=== PATIENT | male | born 1955 | race Caucasian/White ===

== ENCOUNTER 2018-08-30 14:22 | Inpatient (IN) ==
[2018-08-30] MEDS ORDERED: Mirtazapine 15 MG Tablet PO ONE (20:28)
[2018-08-30] MEDS ORDERED: clonazePAM 1 MG Tablet PO ONE (20:28)
--- NOTE | 2018-08-30 20:37 | ED ---
HPI General Chief Complaint: Psychiatric Symptoms Stated Complaint: psych eval Time Seen by Provider: 08/31/18 12:01 Source: patient Mode of arrival: ambulatory Limitations: no limitations History of Present Illness HPI Narrative: 63-year-old white male presents emergency department on a voluntary basis for psychological evaluation. The patient was advised by his grievance counselor to come to the ER because of a failed overdose attempt this past Sunday. He had taken approximately 20 tablets of oxycodone in a suicide attempt. Patient states that Derick his partner of 37 years earlier this year. He states that he has suffered a recent pneumonia with liver abscess followed by C. difficile. His life is consumed with doctor's appointments. He states that he had lost the will to live. He states that he does not feel suicidal now but states that he does not want to continue to live any longer. He denies any homicidal ideation. He does report having a large voluminous diarrhea after ingesting the oxycodone. He has gradually had some improvement of his diarrhea but is still significant. Patient reports having fever and chills this past Sunday before his ingestion. He states that it was reminiscent of when he had sepsis from subtalar pneumonia. He denies any cough , congestion, shortness of breath, nausea, vomiting, or urinary symptoms. He does report some abdominal cramping and his persistent diarrhea. 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 Depression, anxiety, BPH. Denies immunosuppression or HIV. Surgical history: Left upper lobe lobectomy, appendectomy Social history: Drinks alcohol on occasion denies tobacco and drugs. Related Data Home Medications Medication Instructions Recorded Confirmed clonazepam 0.5 mg PO BID 08/30/18 08/30/18 clonazepam 2 mg PO HS 08/30/18 08/30/18 mirtazapine 15 mg PO DAILY 08/30/18 08/30/18 paroxetine HCl 20 mg PO HS 08/30/18 08/30/18 tamsulosin 0.4 mg PO DAILY 08/30/18 08/30/18 Allergies Allergy/AdvReac Type Severity Reaction Status Date / Time cat dander Allergy Congestion Verified 08/30/18 20:27 Review of Systems ROS: all other systems reviewed are negative [facility] Medical History Medical History BPH (benign prostatic hyperplasia) (Acute) Depression (Acute) Surgical History Surgical History History of appendectomy (Acute) S/P partial lobectomy of lung (Acute) Family History Family History Other Family history normal Social History Social History Substance History: No History of Abuse Second Hand Smoke Exposure: No Smoking Status: Never smoker How Often Do You Have a Drink Containing Alcohol: Monthly or less Recent Travel in [facility] within the Last 8 Weeks: No Recent Out of Country Travel within the Last 8 Weeks: No Immunization History Tetanus Immunization: Unsure Exam Narrative Exam Narrative: GENERAL: Well-nourished, well-developed patient. SKIN: Warm and dry. HEAD: Normocephalic and atraumatic. EYES: No scleral icterus. No injection or drainage. ENT: No nasal drainage noted. Mucous membranes pink. Airway patent. NECK: Supple, trachea midline. Moves head freely without obvious discomfort. CARDIOVASCULAR: Regular rate and rhythm without murmurs, gallops, or rubs. RESPIRATORY: Breath sounds equal bilaterally. No accessory muscle use. GASTROINTESTINAL: Abdomen soft, non-tender, nondistended. EXTREMITIES: No cyanosis or edema. BACK: Nontender without obvious deformity. No CVA tenderness. NEURO: Patient is alert and oriented. no sensorimotor deficits. Nonfocal. Normal speech. PSYCH: No delusions. No auditory or visual hallucinations. Course Initial Documented Vital Signs Temperature 99.0 F 08/30/18 14:42 Pulse Rate 105 H 08/30/18 14:42 Respiratory Rate 18 08/30/18 14:42 Blood Pressure 140/71 08/30/18 14:42 Pulse Oximetry 98 08/30/18 14:42 Last Documented Vital Signs Temperature 97.5 F L 08/31/18 16:04 Pulse Rate 80 08/31/18 16:04 Respiratory Rate 18 08/31/18 16:04 Blood Pressure 129/69 08/31/18 16:04 Pulse Oximetry 97 08/31/18 16:04 Medical Decision Making MDM Narrative Medical decision making narrative: We will perform routine laboratory testing for medical clearance. We will also obtain chest x-ray and stool for C. difficile. Patient C. difficile titer is positive. He is given vancomycin 250 mg p.o. Medical Screen Exam Complete: Yes Emergency Medical Condition: Yes Differential Diagnosis Differential Diagnosis: Differential diagnosis includes but is not limited to depression with suicidal gesture, suicide attempt, suicidal ideation, attention seeking behavior. Lab Data Lab results reviewed: Yes I reviewed the patient's lab results. Result diagrams: 08/30/18 21:04 08/30/18 21:04 Lab Results 08/30/18 08/30/18 08/30/18 Range/Units 20:45 21:04 21:04 WBC 7.3 (4.0-11.0) th/mm3 RBC 4.79 (4.50-5.90) mil/mm3 Hgb 14.2 (13.0-17.0) gm/dL Hct 42.1 (39.0-51.0) % MCV 87.8 (80.0-100.0) fL MCH 29.7 (27.0-34.0) pg MCHC 33.8 (32.0-36.0) % RDW 14.5 (11.6-17.2) % Plt Count 306 (150-450) th/mm3 MPV 6.7 L (7.0-11.0) fL Neut % (Auto) 62.2 (16.0-70.0) % Lymph % (Auto) 24.9 (9.0-44.0) % Beaver % (Auto) 11.2 H (0.0-8.0) % Eos % (Auto) 1.2 (0.0-4.0) % Baso % (Auto) 0.5 (0.0-2.0) % Neut # (Auto) 4.5 (1.8-7.7) th/mm3 Lymph # (Auto) 1.8 (1.0-4.8) th/mm3 Beaver # (Auto) 0.8 (0.0-0.9) th/mm3 Eos # (Auto) 0.1 (0.0-0.4) th/mm3 Baso # (Auto) 0.0 (0.0-0.2) th/mm3 WBC Differential . Differential Comment Auto diff final Sodium 142 (136-145) meq/L Potassium 3.8 (3.5-5.1) meq/L Chloride 105 (98-107) meq/L Carbon Dioxide 29.1 (21.0-32.0) meq/L Anion Gap 8 (5-15) meq/L BUN 11 (7-18) mg/dL Creatinine 0.95 (0.60-1.30) mg/dL Estimated GFR 80 L (>89) mL/min Random Glucose 100 (74-106) mg/dL Calcium 8.8 (8.5-10.1) mg/dL Total Bilirubin 0.3 (0.2-1.0) mg/dL AST 192 H (15-37) U/L ALT 88 H (12-78) U/L Alkaline Phosphatase 79 (45-117) U/L Total Protein 8.3 H (6.4-8.2) g/dL Albumin 3.6 (3.4-5.0) g/dL TSH 1.430 (0.358-3.740) uIU/mL Stool C.difficile Ag Positive H (Negative) Stool C.difficile Toxin Negative (Negative) Stl C.difficile DNA Amp Positive H (Negative) St C. diff Tox Epid 027 Negative (Negative) Serum Alcohol Less than 3 (0-5) mg/dL Imaging Data Radiologist's impression: Chest X-Ray 08/30/18 20:28 CONCLUSION: No evidence of acute cardiopulmonary disease. Apparent previous left thoracotomy. Discharge Plan Discharge Disposition Patient Disposition: 30 Still Patient Discharge Details Diagnosis: Depression, C. difficile diarrhea Physicians Team ED Provider: Tamara Marsh ED Midlevel Provider: Seth Kemp Primary Care Provider: Kevin Dallas Attending Provider: Amarjit Muir Other Providers: Kailyn Starr ; Aminata Cardenas Discharge Interventions Interventions: ED Discharge Assessment Last Done: 08/31/18 15:59 Vital Signs Last Done: 08/31/18 07:07 Status ED Status: Left Department Discharge Information Discharge Date/Time: 08/31/18 16:00
[2018-08-30 21:16] LABS: Baso % (Auto) 0.5 % (0.0-2.0); Eos # (Auto) 0.1 th/mm3 (0.0-0.4); Eos % (Auto) 1.2 % (0.0-4.0); Hematocrit 42.1 % (39.0-51.0); Hemoglobin 14.2 gm/dL (13.0-17.0); Lymph # (Auto) 1.8 th/mm3 (1.0-4.8); Lymph % (Auto) 24.9 % (9.0-44.0); Mean Corpuscular HGB Conc 33.8 % (32.0-36.0); Mean Corpuscular Hemoglobin 29.7 pg (27.0-34.0); Mean Corpuscular Volume 87.8 fL (80.0-100.0); Mean Platelet Volume 6.7 fL (7.0-11.0); Mono # (Auto) 0.8 th/mm3 (0.0-0.9); Mono % (Auto) 11.2 % (0.0-8.0); Neut # (Auto) 4.5 th/mm3 (1.8-7.7); Neut % (Auto) 62.2 % (16.0-70.0); Platelet Count 306 th/mm3 (150-450); Red Blood Count 4.79 mil/mm3 (4.50-5.90); Red Cell Distribution Width 14.5 % (11.6-17.2); White Blood Count 7.3 th/mm3 (4.0-11.0)
--- NOTE | 2018-08-30 21:22 | XR ---
EXAM DATE: 08/30/2018 8:28 PM EDT AGE/SEX: 63 years / Male INDICATIONS: . Cough. CLINICAL DATA: This is the patient's initial encounter. Patient reports that signs and symptoms have been present for 1 day and indicates a pain score of 0/10. MEDICAL/SURGICAL HISTORY: None. None. COMPARISON: No prior exams available for comparison. FINDINGS: PA and lateral views of the chest demonstrate the lungs to be symmetrically aerated without evidence of mass, infiltrate or effusion. The cardiomediastinal contours are unremarkable. Osseous structures are grossly, acutely intact. There is evidence of previous left thoracotomy. CONCLUSION: No evidence of acute cardiopulmonary disease. Apparent previous left thoracotomy. Electronically signed by: Hesham Cadena MD 08/30/2018 9:20 PM EDT
[2018-08-30 21:36] LABS: Albumin 3.6 g/dL (3.4-5.0); Anion Gap 8 meq/L (5-15); Aspartate Aminotransferase 192 U/L (15-37); Blood Urea Nitrogen 11 mg/dL (7-18); Calcium 8.8 mg/dL (8.5-10.1); Carbon Dioxide 29.1 meq/L (21.0-32.0); Chloride 105 meq/L (98-107); Glomerular Filtration Rate 80 mL/min (>89); Glucose,Random 100 mg/dL (74-106); Potassium 3.8 meq/L (3.5-5.1); Sodium 142 meq/L (136-145)
[2018-08-30 21:37] LABS: Alanine Aminotransferase 88 U/L (12-78)
[2018-08-30 21:48] LABS: Alkaline Phosphatase 79 U/L (45-117); Total Protein 8.3 g/dL (6.4-8.2)
[2018-08-31] MEDS ORDERED: Sodium Chloride 0.9% 2 ML Flush PRN IV.FLUSH (00:20)
[2018-08-31] MEDS ORDERED: clonazePAM 1 MG Tablet PO ONE (07:09)
--- NOTE | 2018-08-31 12:46 | ED ---
HPI - Psych - General Source: patient Mode of arrival: ambulatory Limitations: no limitations - History of Present Illness MD complaint: suicidal ideation Onset (ago): day(s) Duration: resolved prior to arrival History of same: Yes Relieving factors: none Exacerbating factors: none Context: significant life stressor Associated psychiatric symptoms: depression Associated symptoms: other (Diarrhea) Treatments prior to arrival: none If self harm: has acted on plan, intentional overdose (2 days ago), other - General Chief Complaint: Psychiatric Symptoms Stated Complaint: psych eval Time Seen by Provider: 08/31/18 12:01 - History of Present Illness HPI Narrative: History of Present Illness HPI Narrative: 63-year-old white, , retired, male, lives by himself, with reported history of anxiety and depression, presents emergency department on a voluntary basis for psychological evaluation as advised by his grief counselor secondary to failed overdose attempt this past Sunday. The patient allegedly took approximately 20 tablets of oxycodone as a suicide attempt. He did not seek treatment at that time. Patient reports several significant stressors including his partner of 37 years in November of this year , the patient has had several medical issues including pneumonia, left upper lobe lobectomy secondary to lung infection, liver abscess, C. difficile. He feels that his life is consumed with doctor's appointments and that he had lost the will to live. He has been seen a local psychiatrist Dr. Wolfe for the past 3 months and is being treated with Paxil 20 mg, Remeron 15 mg, Klonopin 0.5 twice daily and 2 mg at at bedtime for sleep. Electronic medical record is reviewed prior to seeing the patient. No previous contact with [facility]. Current toxicology is not available at the time of this report. Blood alcohol level is undetectable. Patient is seen. He is alert, oriented, engaging and cooperative. He is maintaining basic hygiene. The patient's speech is clear, logical. His affect depressed, mood is depressed. There is no evidence of any hallucinations and I can elicit no delusions or paranoia. He denies current suicidal ideation at this time. He appears to minimize his current emotional distress. 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 The remainder of psychiatric review of system is negative. (Michelle Heller) - Related Data Home Medications Medication Instructions Recorded Confirmed clonazepam 0.5 mg PO BID 08/30/18 08/30/18 clonazepam 2 mg PO HS 08/30/18 08/30/18 mirtazapine 15 mg PO DAILY 08/30/18 08/30/18 paroxetine HCl 20 mg PO HS 08/30/18 08/30/18 tamsulosin 0.4 mg PO DAILY 08/30/18 08/30/18 Allergies Allergy/AdvReac Type Severity Reaction Status Date / Time cat dander Allergy Congestion Verified 08/30/18 20:27 PMF - History History Provided By: Patient - Medical History Medical History: Medical History (Last Updated 08/31/18 @ 14:20 by Kailyn Starr MD) BPH (benign prostatic hyperplasia) Depression - Surgical History Surgical History: Surgical History (Last Reviewed 08/31/18 @ 14:17 by Kailyn Starr MD) History of appendectomy S/P partial lobectomy of lung - Family History Family History: Family History (Last Updated 08/31/18 @ 14:17 by Kailyn Starr MD) Other Family history normal - Tobacco History Second Hand Smoke Exposure: No Tobacco Use In Past 30 Days: No Smoking Status: Never smoker - Alcohol History How Often Do You Have a Drink Containing Alcohol: Monthly or less - Substance Use History Substance History: No History of Abuse - Travel History Recent Travel in the [place] Within the Last 8 Weeks: No Recent Travel Out of the Country Within the Last 8 Weeks: No - Immunization History Tetanus Immunization: Unsure Psychiatric History - Psychiatric History Psychiatric Treatment History: History of Psychiatric Treatment History of Inpatient Treatment: No Firearms in Home: No - Psychiatric History Denies history of previous suicide attempt. Denies history of any psychiatric admission. Patient has been receiving outpatient psychiatric care for the past 3 months. Reports medication compliance. (Heller,Michelle) - Legal History None reported (Heller,Michelle) Physical Exam - General Limitations: no limitations Mental Status Examination Consciousness: Alert Orientation: x4 Motor Activity: Normal gait Speech: Unremarkable Language: Adequate Fund of Knowledge: Adequate Attention and Concentration: Other (Reports decreased concentration) Memory: Unremarkable Mood: Sad, Anxious Affect: Sad Thought Process & Associations: Intact, Logical, Goal directed Thought Content: Appropriate Hallucination Type: None Delusion Type: None Suicidal Ideation: No Suicidal Plan: No Suicidal Intention: No Homicidal Ideation: No Homicidal Plan: No Homicidal Intention: No Insight: Fair Judgment: Impulsive Initial Documented Vital Signs Temperature 99.0 F 08/30/18 14:42 Pulse Rate 105 H 08/30/18 14:42 Respiratory Rate 18 08/30/18 14:42 Blood Pressure 140/71 08/30/18 14:42 Pulse Oximetry 98 08/30/18 14:42 Last Documented Vital Signs Temperature 97.5 F L 08/31/18 16:04 Pulse Rate 80 08/31/18 16:04 Respiratory Rate 18 08/31/18 16:04 Blood Pressure 129/69 08/31/18 16:04 Pulse Oximetry 97 08/31/18 16:04 MDM - Psych - Diagnosis (1) Adjustment disorder with mixed anxiety and depressed mood Status: Acute - Lab Data Result diagrams: 08/30/18 21:04 08/30/18 21:04 - [facility] Narrative Medical decision making narrative: 63-year-old male with psychiatric history as detailed above with recent suicide attempt by overdose in which she did not receive any treatment. The patient is referred to [place] for evaluation by his grief counselor. Although the patient denies current suicidal ideation he presents significant life stressors and major losses including loss of lifetime partner, multiple medical conditions which impact his ability to do the things he wants to do. Although he denies current suicidal ideation I am concerned regarding his recent failed attempt and the possibility that he may be minimizing current level of despair and distress. I have recommended to the patient a voluntary admission to our inpatient psychiatric unit for further evaluation, for stabilization, medication adjustment and for safety. He agrees to voluntary admission. I will place a consult for hospitalist to follow up on his multiple medical issues and including treatment for C. difficile. (Michelel Heller) - Lab Data Lab Results 08/30/18 08/30/18 08/30/18 Range/Units 20:45 21:04 21:04 WBC 7.3 (4.0-11.0) th/mm3 RBC 4.79 (4.50-5.90) mil/mm3 Hgb 14.2 (13.0-17.0) gm/dL Hct 42.1 (39.0-51.0) % MCV 87.8 (80.0-100.0) fL MCH 29.7 (27.0-34.0) pg MCHC 33.8 (32.0-36.0) % RDW 14.5 (11.6-17.2) % Plt Count 306 (150-450) th/mm3 MPV 6.7 L (7.0-11.0) fL Neut % (Auto) 62.2 (16.0-70.0) % Lymph % (Auto) 24.9 (9.0-44.0) % Oliver % (Auto) 11.2 H (0.0-8.0) % Eos % (Auto) 1.2 (0.0-4.0) % Baso % (Auto) 0.5 (0.0-2.0) % Neut # (Auto) 4.5 (1.8-7.7) th/mm3 Lymph # (Auto) 1.8 (1.0-4.8) th/mm3 Oliver # (Auto) 0.8 (0.0-0.9) th/mm3 Eos # (Auto) 0.1 (0.0-0.4) th/mm3 Baso # (Auto) 0.0 (0.0-0.2) th/mm3 WBC Differential . Differential Comment Auto diff final Sodium 142 (136-145) meq/L Potassium 3.8 (3.5-5.1) meq/L Chloride 105 (98-107) meq/L Carbon Dioxide 29.1 (21.0-32.0) meq/L Anion Gap 8 (5-15) meq/L BUN 11 (7-18) mg/dL Creatinine 0.95 (0.60-1.30) mg/dL Estimated GFR 80 L (>89) mL/min Random Glucose 100 (74-106) mg/dL Calcium 8.8 (8.5-10.1) mg/dL Total Bilirubin 0.3 (0.2-1.0) mg/dL AST 192 H (15-37) U/L ALT 88 H (12-78) U/L Alkaline Phosphatase 79 (45-117) U/L Total Protein 8.3 H (6.4-8.2) g/dL Albumin 3.6 (3.4-5.0) g/dL TSH 1.430 (0.358-3.740) uIU/mL Stool C.difficile Ag Positive H (Negative) Stool C.difficile Toxin Negative (Negative) Stl C.difficile DNA Amp Positive H (Negative) St C. diff Tox Epid 027 Negative (Negative) Serum Alcohol Less than 3 (0-5) mg/dL
--- NOTE | 2018-08-31 13:37 | P.HPIM ---
History of Present Illness Service: [facility] Primary Care Physician: Kevin Dallas MD, PhD Chief Complaint: depressed mood, suicide attempt History of Present Illness: This is a 63-year-old CM who was admitted per the Psych team for psychological evaluation on voluntary basis. The patient was advised by his grievance counselor to come to the ER because of a failed overdose attempt this past Sunday after patient had taken approximately 20 tablets of OxyContin in a suicide attempt due to him losing his will to live. Patient reports that his partner of 37yrs, Derick, a few months ago. Patient currently denies suicidal/homicidal ideation. Patient is on Paxil and Remeron at home for Depression. Patient does have a Hx of PNA with pleural effusion on 06/2017 managed in [place] but he later transferred to [facility] in [place] where a lobectomy was performed and patient states that he was told that it was noncancerous. Patient then developed Klebsiella PNA and sepsis on 02/2018 and managed at [facility]. Patient reports that he was on ABX for 14 days and that ID can prolonging his ABX due to CT findings concerning for the PNA still being present , he reports being on ABX x14 wks total. Patient then transferred to ID, Dr. Gastelum, due to loose stools C. Diff testing was done and founf to be positive on 05/2018 and patient completed Vanc x14 days. Patient reports that he now has diarrhea again with chills x2 days, +foul smell , flatulence, and abdominal cramps. Patient denies fever, chest pain, shortness of breath, and vomiting. Patient is requesting ID consult. Inpatient Certification: I certify that the inpatient services were ordered in accordance with Medicare regulations governing the order. This includes certification that hospital inpatient services are reasonable and necessary and in the case of services not specified as inpatient-only under 42 CFR 419.22(n), that they are appropriately provided as inpatient services in accordance to with the 2-midnight benchmark under 43 CFR 412.3(e) Estimated Total Length of Stay (Days): 5 Plans for Post Hospital Care: Home Review of Systems All other systems reviewed negative except as stated in HPI PMFSH - History History Provided By: Patient - Medical History Medical History: Medical History (Last Updated 08/31/18 @ 14:20 by Kailyn Starr MD) BPH (benign prostatic hyperplasia) Depression - Surgical History Surgical History: Surgical History (Last Reviewed 08/31/18 @ 14:17 by Kailyn Starr MD) History of appendectomy S/P partial lobectomy of lung - Family History Family History: Family History (Last Updated 08/31/18 @ 14:17 by Kailyn Starr MD) Other Family history normal - Social History I have reviewed the patient's Social History: Yes - Tobacco History Second Hand Smoke Exposure: No Tobacco Use In Past 30 Days: No Smoking Status: Never smoker - Alcohol History How Often Do You Have a Drink Containing Alcohol: Monthly or less - Substance Use History Substance History: No History of Abuse - Travel History Recent Travel in the [place] Within the Last 8 Weeks: No Recent Travel Out of the Country Within the Last 8 Weeks: No - Immunization History Tetanus Immunization: Unsure Medications and Allergies Active Medications: Active Medications Clonazepam (Klonopin) 0.5 mg PO BID ISSAC Mirtazapine (Remeron) 15 mg PO DAILY ISSAC Non-Formulary Medication (Clonazepam [Clonazepam]) 2 mg PO HS ISSAC Paroxetine HCl (Paxil) 20 mg PO HS ISSAC Sodium Chloride (Ns Flush) 2 ml IV.FLUSH BID ISSAC Sodium Chloride (Ns Flush) 2 ml IV.FLUSH PRN PRN PRN Reason: FLUSH AFTER USING IV ACCESS Tamsulosin HCl (Flomax) 0.4 mg PO DAILY ISSAC Vancomycin HCl (Vancomycin Po) 125 mg PO QID ISSAC Allergies Allergy/AdvReac Type Severity Reaction Status Date / Time cat dander Allergy Congestion Verified 08/30/18 20:27 Home Medications Medication Instructions Recorded Confirmed Type clonazepam 0.5 mg PO BID 08/30/18 08/30/18 History clonazepam 2 mg PO HS 08/30/18 08/30/18 History mirtazapine 15 mg PO DAILY 08/30/18 08/30/18 History paroxetine HCl 20 mg PO HS 08/30/18 08/30/18 History tamsulosin 0.4 mg PO DAILY 08/30/18 08/30/18 History Exam Vital signs: Vital Signs 08/30/18 14:42 08/30/18 19:57 08/31/18 07:07 Temperature 99.0 F 98.7 F 98.8 F Pulse Rate 105 H 100 H 78 Respiratory Rate 18 16 Blood Pressure 140/71 122/59 L 125/62 Pulse Oximetry 98 Intake & Output 08/30/18 08/31/18 08/31/18 18:59 06:59 18:59 Weight 92.533 kg Narrative: GENERAL: Well-nourished male, in NAD, lying comfortably in bed SKIN: Warm and dry. Posterior thorax with a well tear lobectomy scar on the left. HEAD: Normocephalic. EYES: No scleral icterus. No injection or drainage. NECK: Supple, trachea midline. No JVD or lymphadenopathy. CARDIOVASCULAR: Regular rate and rhythm without murmurs, gallops, or rubs. RESPIRATORY: Breath sounds equal bilaterally. No accessory muscle use. GASTROINTESTINAL: Abdomen soft, non-tender, nondistended. Neg rebound. MUSCULOSKELETAL: No cyanosis, or edema. BACK: Nontender without obvious deformity. No CVA tenderness. NEURO/PSYCH: AAOx3, blunt affect, pleasant Results - Labs CBC & Chem 7: 08/30/18 21:04 08/30/18 21:04 Labs: Short CBC 08/30/18 Range/Units 21:04 WBC 7.3 (4.0-11.0) th/mm3 Hgb 14.2 (13.0-17.0) gm/dL Hct 42.1 (39.0-51.0) % Plt Count 306 (150-450) th/mm3 BMP 08/30/18 21:04 Sodium 142 Potassium 3.8 Chloride 105 Carbon Dioxide 29.1 BUN 11 Creatinine 0.95 Calcium 8.8 Liver Function 08/30/18 Range/Units 21:04 Total Bilirubin 0.3 (0.2-1.0) mg/dL AST 192 H (15-37) U/L ALT 88 H (12-78) U/L Alkaline Phosphatase 79 (45-117) U/L Albumin 3.6 (3.4-5.0) g/dL - Imaging Impressions Chest X-Ray 08/30/18 20:28 CONCLUSION: No evidence of acute cardiopulmonary disease. Apparent previous left thoracotomy. Caprini VTE Risk Assessment Caprini VTE Risk Assessment: No/Low Risk (score <= 1) Caprini Risk Assessment Model: Point Value = 1 Point Value = 2 Point Value = 3 Point Value = 5 Age 41-60 Minor surgery BMI > 25 kg/m2 Swollen legs Varicose veins or History of unexplained or recurrent spontaneous Oral contraceptives or hormone replacement Sepsis (< 1 month) Serious lung disease, including pneumonia (< 1 month) Abnormal pulmonary function Acute myocardial infarction Congestive heart failure (< 1 month) History of inflammatory bowel disease Medical patient at bed rest Age 61-74 Arthroscopic surgery Major open surgery (> 45 min) Laparoscopic surgery (> 45 min) Malignancy Confined to bed (> 72 hours) Immobilizing plaster cast Central venous access Age >= 75 History of VTE Family history of VTE Factor V Leiden Prothrombin [id number] Lupus anticoagulant Anticardiolipin antibodies Elevated serum homocysteine Heparin-induced thrombocytopenia Other congenital or acquired thrombophilia Stroke (< 1 month) Elective arthroplasty Hip, pelvis, or leg fracture Acute spinal cord injury (< 1 month) Prophylaxis Regimen: Total Risk Factor Score Risk Level Prophylaxis Regimen 0-1 Low Early ambulation 2 Moderate Order ONE of the following: *Sequential Compression Device (SCD) *Heparin 5000 units SQ BID 3-4 Higher Order ONE of the following medications: *Heparin 5000 units SQ TID *Enoxaparin/Lovenox 40 mg SQ daily (WT < 150 kg, CrCl > 30 mL/min) *Enoxaparin/Lovenox 30 mg SQ daily (WT < 150 kg, CrCl > 10-29 mL/min) *Enoxaparin/Lovenox 30 mg SQ BID (WT < 150 kg, CrCl > 30 mL/min) AND/OR *Sequential Compression Device (SCD) 5 or more Highest Order ONE of the following medications: *Heparin 5000 units SQ TID (Preferred with Epidurals) *Enoxaparin/Lovenox 40 mg SQ daily (WT < 150 kg, CrCl > 30 mL/min) *Enoxaparin/Lovenox 30 mg SQ daily (WT < 150 kg, CrCl > 10-29 mL/min) *Enoxaparin/Lovenox 30 mg SQ BID (WT < 150 kg, CrCl > 30 mL/min) AND *Sequential Compression Device (SCD) Assessment and Plan - Plan This is a 63-year-old CM who was admitted by the Psych team for IP management of Depression with failed suicide attempt and Drug Overdose (OxyContin). Patient is medically stable however found to have diarrhea and chills x3 days and + C. difficile per testing, HD#2 1. Depression/Suicide Attempt Patient denies current suicidal and homicidal ideation Continue psych management Continue Paxil, Remeron, and Klonopin 2 C. Difficile Diarrhea Positive antigen and DNA on 08/30 Started on Vancomycin PO QID Of note treated for C. difficile as an outpatient on 05/2018 status post Vanc times 2 weeks Per patient request ID consultation due to Hx of C. Dif Will monitor electrolytes 3. Elevated LFT's Will check acetaminophen level although patient did state that he took OxyContin and not oxycodone We will get hepatitis panel Follow-up CMP in a.m. Avoid hepatotoxic meds 4. BPH Continue home Flomax 5. Hx of Lobectomy and Klebsiella PNA Neg CXR on admission No PNA sx on admission 6. DVT prophylaxis: Ambulatory 7. Disposition: Awaiting ID recommendations as well as psych management Code Status: full Discussed Condition With: patient
[2018-08-31] MEDS: Sodium Chloride 0.9% 2 ML Flush BID IV.FLUSH SCH ×2 (17:06→21:59)
[2018-08-31] MEDS ORDERED: clonazePAM 0.5 MG Tablet PO SCH (21:00)
[2018-08-31] MEDS ORDERED: clonazePAM 1 MG Tablet PO SCH (21:30)
[2018-08-31] MEDS: Mirtazapine 15 MG Tablet PO SCH (21:59)
--- NOTE | 2018-09-01 07:20 | P.PN ---
Subjective Interval history: Patient doing well overnight, reports continued diarrhea x3 overnight. Patient denies emesis, fever, and chills. Also having mild abdominal cramps. Patient is tolerating p.o., and voiding well. Patient does report improved mood today. Physical Exam Vital signs: Vital Signs 08/31/18 13:00 08/31/18 16:04 09/01/18 05:57 Temperature 97.5 F L 98.0 F Pulse Rate 78 80 79 Respiratory Rate 16 16 Blood Pressure 122/68 129/69 116/60 Pulse Oximetry 97 94 L Intake & Output 08/31/18 09/01/18 09/01/18 18:59 06:59 18:59 Intake Total 360 / 360 Balance 360 / 360 Weight 90.2 kg Intake: Oral 360 / 360 Other: # Voids 2 Weight On Admission 92.533 kg Narrative: GENERAL: Well-nourished male, in NAD, lying comfortably in bed SKIN: Warm and dry. Posterior thorax with a well tear lobectomy scar on the left. HEAD: Normocephalic. EYES: No scleral icterus. No injection or drainage. NECK: Supple, trachea midline. No JVD or lymphadenopathy. CARDIOVASCULAR: Regular rate and rhythm without murmurs, gallops, or rubs. RESPIRATORY: Breath sounds equal bilaterally. No accessory muscle use. GASTROINTESTINAL: Abdomen soft, non-tender, nondistended. Neg rebound. MUSCULOSKELETAL: No cyanosis, or edema. BACK: Nontender without obvious deformity. No CVA tenderness. NEURO/PSYCH: AAOx3, blunt affect, pleasant Results - Labs CBC & Chem 7: 09/01/18 07:34 09/01/18 07:34 Laboratory Results - last 24 hr 08/30/18 20:45 Stool C.difficile Ag Positive H Stool C.difficile Toxin Negative Assessment and Plan - Plan This is a 63-year-old CM who was admitted by the Psych team for IP management of Depression with failed suicide attempt and Drug Overdose (OxyContin). Patient is medically stable however found to have diarrhea and chills x3 days and + C. difficile per testing, HD#3 1. Adjustment disorder with Mixed Anxiety & Depression/Suicide Attempt Patient denies current suicidal and homicidal ideation Continue psych management Continue Paxil, Remeron, and Klonopin 2 C. Difficile Diarrhea Positive antigen and DNA on 08/30 Started on Vancomycin PO QID Of note treated for C. difficile as an outpatient on 05/2018 status post Vanc times 2 weeks Per patient request ID consultation due to Hx of C. Dif Will monitor electrolytes, K replaced today 3. Hypokalemia K 3.2 today Will replace with KCl 40 meq PO x1 Follow-up CMP in AM 4. Elevated LFT's, improved Likely elevated due to recent OxyContin overdose as well as hepatitis A AST 69 today Neg acetaminophen level on admission Avoid hepatotoxic meds 5. Hepatitis A Hep A IgM + on admission Likely contributing to patient's diarrhea Patient denies recent travel or new food or water source Patient reports negative hepatitis and HIV testing with PCP, Dr. Quiñonez 1 month ago, records requested Follow-up ID reccs 6. BPH Continue home Flomax 7. Hx of Lobectomy and Klebsiella PNA Neg CXR on admission No PNA sx on admission 8. DVT prophylaxis: Ambulatory 9. Disposition: Awaiting ID recommendations as well as psych management Code Status: full Discussed Condition With: patient, RN
[2018-09-01 07:55] LABS: Baso % (Auto) 0.6 % (0.0-2.0); Eos # (Auto) 0.2 th/mm3 (0.0-0.4); Eos % (Auto) 2.8 % (0.0-4.0); Hematocrit 40.4 % (39.0-51.0); Hemoglobin 13.6 gm/dL (13.0-17.0); Lymph # (Auto) 1.6 th/mm3 (1.0-4.8); Lymph % (Auto) 22.9 % (9.0-44.0); Mean Corpuscular HGB Conc 33.7 % (32.0-36.0); Mean Corpuscular Hemoglobin 29.6 pg (27.0-34.0); Mean Platelet Volume 6.3 fL (7.0-11.0); Mono # (Auto) 0.7 th/mm3 (0.0-0.9); Mono % (Auto) 9.8 % (0.0-8.0); Neut # (Auto) 4.3 th/mm3 (1.8-7.7); Neut % (Auto) 63.9 % (16.0-70.0); Platelet Count 300 th/mm3 (150-450); Red Blood Count 4.59 mil/mm3 (4.50-5.90); Red Cell Distribution Width 14.1 % (11.6-17.2); White Blood Count 6.8 th/mm3 (4.0-11.0)
[2018-09-01 08:23] LABS: Alanine Aminotransferase 58 U/L (12-78); Albumin 3.1 g/dL (3.4-5.0); Anion Gap 7 meq/L (5-15); Aspartate Aminotransferase 69 U/L (15-37); Blood Urea Nitrogen 8 mg/dL (7-18); Calcium 8.5 mg/dL (8.5-10.1); Chloride 106 meq/L (98-107); Glomerular Filtration Rate 84 mL/min (>89); Glucose,Random 110 mg/dL (74-106); Potassium 3.2 meq/L (3.5-5.1); Sodium 142 meq/L (136-145)
[2018-09-01 08:24] LABS: Cholesterol 178 mg/dL (120-200)
[2018-09-01 08:27] LABS: Alkaline Phosphatase 66 U/L (45-117); Chol/HDL Ratio 4.89 Ratio; HDL Cholesterol 36.4 mg/dL (40.0-60.0); LDL Cholesterol,Calculated 108 mg/dL (0-99); Total Protein 6.9 g/dL (6.4-8.2); Triglycerides 167 mg/dL (42-150)
[2018-09-01] MEDS ORDERED: clonazePAM 0.5 MG Tablet PO SCH ×3 (09:00)
[2018-09-01 09:44] LABS: Hepatitis A IgM Antibody Reactive (Nonreactive); Hepatitits B Surface Antigen Nonreactive (Nonreactive)
[2018-09-01] MEDS: Mirtazapine 15 MG Tablet PO SCH (09:45)
--- NOTE | 2018-09-01 09:52 | P.HPPSY ---
Provisional Diagnosis Admission Date: August 31, 2018 13:10 [place] I.: Adjustment disorder with mixed anxiety and depressed mood Competence Certification of Person's Competence To Provide Express and Informed Consent I have personally examined Jeremiah Negrete, a person being served at [facility] on, September 01, 2018 0938. Express and informed consent means consent voluntarily given in writing, by a competent person, after sufficient explanation and disclosure of the subject matter involved to enable the person to make a knowing and willful decision without any element of force, fraud, deceit, duress, or other form of constraint or coercion. This person is 18 years of age or older, is not now known to be incompetent to consent to treatment with a guardian advocate, and does not have a health care surrogate or proxy currently making medical treatment decisions. I have found this person to be one of the following: [xxx] Competent to provide express and informed consent, as defined above, for voluntary admission to this facility and is competent to provide express and informed consent for treatment. He/she has the consistent capacity to make well reasoned, willful, and knowing decisions concerning his or her medical or mental health treatment. The person fully and consistently understands the purpose of the admission for examination/placement and is fully capable of personally exercising all rights assured under [place] [] Incompetent to provide express and informed consent to voluntary admission, and this is incompetent to provide express and informed consent to treatment. The person must be transferred to involuntary status and a petition for a guardian advocate filed with the Circuit Court. [] Refusing to provide express and informed consent to voluntary admission but is competent to provide express and informed consent for treatment. The person must be discharged or transferred to involuntary status. Form shall be completed within 24 hours of a person's arrival at the receiving facility and filed in the clinical record of each person: 1. Admitted on a voluntary basis 2. Permitted to provide express and informed consent to his/her own treatment 3. Allowed to transfer from involuntary to voluntary status 4. Prior to permitting a person to consent to his or her own treatment after having been previously found incompetent to consent to treatment. History of Present Illness Capacity: Has capacity History of Present Illness: Patient is a 63-year-old man, , retired, domiciled alone, with a past psychiatric history of depression, anxiety, no previous psychiatric admissions, no previous suicide attempts, no history of self-injurious behavior , with a past medical history significant for BPH, who presented to the ED voluntarily after advised by his grief counselor to come into the hospital due to patient stating that he had a suicide attempt several days ago via overdose patient was admitted to the inpatient psychiatry unit for further evaluation and management. Patient was seen by city assessor in the ED as stated below: 63-year-old white, , retired, male, lives by himself, with reported history of anxiety and depression, presents emergency department on a voluntary basis for psychological evaluation as advised by his grief counselor secondary to failed overdose attempt this past Sunday. The patient allegedly took approximately 20 tablets of oxycodone as a suicide attempt. He did not seek treatment at that time. Patient reports several significant stressors including his partner of 37 years in November of this year, the patient has had several medical issues including pneumonia, left upper lobe lobectomy secondary to lung infection, liver abscess, C. difficile. He feels that his life is consumed with doctor's appointments and that he had lost the will to live. He has been seen a local psychiatrist Dr. Wolfe for the past 3 months and is being treated with Paxil 20 mg, Remeron 15 mg, Klonopin 0.5 twice daily and 2 mg at at bedtime for sleep. . The patient's speech is clear, logical. His affect depressed, mood is depressed. There is no evidence of any hallucinations and I can elicit no delusions or paranoia. He denies current suicidal ideation at this time. He appears to minimize his current emotional distress. 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 Patient was found lying hospital bed currently in isolation due to ongoing C. difficile which patient is followed by hospitalist team, but noted to be calm and cooperative. Patient states that he had been dealing with recent loss of his son has been in November of this year and was attending grief counseling as well as recent medical illnesses to include C. difficile, liver abscess, left upper lobectomy and after recent treatment for C. difficile had a recurrence which prompted patient to feel overwhelmed and attempted to overdose. He mentions that he also been having anxiety which is more prominent in the mornings but denies any difficulty with sleep, appetite concentration but is noted to have decreased energy. He states that several days ago he had been feeling physically ill with suspicion that he had a recurrence of C. difficile and in the morning several days ago had seen a bottle of OxyContin and took a handful of medications which later was woken up by his sister later that day. He states that he had confessed what he had done to his family which they were upset about him for this but states he is glad he did not . Patient reports feeling embarrassed and regretful of suicide attempt at this time denies having had any recurrence of suicidal ideations. Patient continues to have anxiety mostly in the mornings but was wishing to engage in individual therapy as well as continue treatment. Discussion of decreasing clonazepam in the evening and maintaining morning dose was reviewed along with continuance of his antidepressant medication regimen for now. Rest of psychiatric review of systems negative, no perceptual disturbances, no delusional material elicited. Family psychiatric history: Denies Past psychiatric history: Previous psychiatric diagnoses depression and anxiety , no previous psychiatric admissions, no previous suicide attempt or self- injurious behavior. Patient denies history of abuse, current outpatient mental health provider is Dr. Wolfe currently on Paxil 20 mg daily, Remeron 50 mg at bedtime, clonazepam 1 mg twice daily. Substance use history: Alcohol use 2 glasses of wine daily but states having stopped consuming alcohol since February of this year. Patient denies use of any other drugs. Past medical history: BPH Allergies: NKDA Social history: , retired, domiciled alone, supported on Social Security benefits and savings. - Inpatient Certification I certify that the inpatient services were ordered in accordance with Medicare regulations governing the order. This includes certification that hospital inpatient services are reasonable and necessary and in the case of services not specified as inpatient-only under 42 CFR 419.22(n), that they are appropriately provided as inpatient services in accordance to with the 2-midnight benchmark under 43 CFR 412.3(e) I certify that inpatient psychiatric hospital services are medically necessary. Evaluation and treatment and/or diagnostic testing are expected to improve the patient's condition. The patient needs on a daily basis, active treatment furnished directly by or requiring the supervision of inpatient psychiatric facility personnel. Estimated Total Length of Stay (Days): 5 Plans for Post Hospital Care: Home Review of Systems All other systems reviewed negative except as stated in HPI PMFSH - History History Provided By: Patient, Medical Record - Medical History Medical History: Medical History (Last Updated 08/31/18 @ 14:20 by Kailyn Starr MD) BPH (benign prostatic hyperplasia) Depression - Surgical History Surgical History: Surgical History (Last Reviewed 08/31/18 @ 14:17 by Kailyn Starr MD) History of appendectomy S/P partial lobectomy of lung - Family History Family History: Family History (Last Updated 08/31/18 @ 14:17 by Kailyn Starr MD) Other Family history normal - Tobacco History Second Hand Smoke Exposure: No Tobacco Use In Past 30 Days: No Smoking Status: Never smoker - Alcohol History How Often Do You Have a Drink Containing Alcohol: Monthly or less - Substance Use History Substance History: No History of Abuse - Travel History Recent Travel in the [place] Within the Last 8 Weeks: No Recent Travel Out of the Country Within the Last 8 Weeks: No - Immunization History Tetanus Immunization: Unsure Quality Measures - Psychiatric History Psychological trauma history: Denies Violence risk to others in the last 6 months: Low Violence risk to self in the last 6 months: Elevated due to recent suicide attempt - Substance Abuse History Drug or alcohol use in the past 12 months: See HPI - Patient Strengths Patient's strengths (minimum of 2): Verbal and communicative Medications and Allergies Active Medications: Active Medications Clonazepam (Klonopin) 0.5 mg PO BID@0900,1300 [facility] Clonazepam (Klonopin) 2 mg PO [facility] Last Admin: 08/31/18 23:28 Dose: 2 mg Clonazepam (Klonopin) 0.5 mg PO BID@0900,1300 [facility] Mirtazapine (Remeron) 15 mg PO DAILY [facility] Last Admin: 08/31/18 21:59 Dose: 15 mg Paroxetine HCl (Paxil) 20 mg PO HS [facility] Last Admin: 08/31/18 23:28 Dose: 20 mg Sodium Chloride (Ns Flush) 2 ml IV.FLUSH BID [facility] Last Admin: 08/31/18 21:59 Dose: 2 ml Sodium Chloride (Ns Flush) 2 ml IV.FLUSH PRN PRN PRN Reason: FLUSH AFTER USING IV ACCESS Tamsulosin HCl (Flomax) 0.4 mg PO DAILY [facility] Vancomycin HCl (Vancomycin Po) 125 mg PO QID [facility] Last Admin: 08/31/18 21:59 Dose: 125 mg Allergies Allergy/AdvReac Type Severity Reaction Status Date / Time cat dander Allergy Congestion Verified 08/30/18 20:27 Home Medications Medication Instructions Recorded Confirmed Type clonazepam 0.5 mg PO BID 08/30/18 08/30/18 History clonazepam 2 mg PO HS 08/30/18 08/30/18 History mirtazapine 15 mg PO DAILY 08/30/18 08/30/18 History paroxetine HCl 20 mg PO HS 08/30/18 08/30/18 History tamsulosin 0.4 mg PO DAILY 08/30/18 08/30/18 History Results - Labs CBC & Chem 7: 09/01/18 07:34 09/01/18 07:34 Labs: Laboratory Results - last 24 hr 08/30/18 09/01/18 09/01/18 20:45 07:34 07:34 WBC 6.8 RBC 4.59 Hgb 13.6 Hct 40.4 MCV 88.0 MCH 29.6 MCHC 33.7 RDW 14.1 Plt Count 300 MPV 6.3 L Neut % (Auto) 63.9 Lymph % (Auto) 22.9 [place] % (Auto) 9.8 H Eos % (Auto) 2.8 Baso % (Auto) 0.6 Neut # (Auto) 4.3 Lymph # (Auto) 1.6 [place] # (Auto) 0.7 Eos # (Auto) 0.2 Baso # (Auto) 0.0 WBC Differential . Differential Comment Auto diff final Sodium 142 Potassium 3.2 L Chloride 106 Carbon Dioxide 29.0 Anion Gap 7 BUN 8 Creatinine 0.91 Estimated GFR 84 L Random Glucose 110 H Calcium 8.5 Total Bilirubin 0.3 AST 69 H ALT 58 Alkaline Phosphatase 66 Total Protein 6.9 D Albumin 3.1 L Triglycerides 167 H Cholesterol 178 LDL Cholesterol, Calc 108 H HDL Cholesterol 36.4 L Cholesterol/HDL Ratio 4.89 Stool C.difficile Ag Positive H Stool C.difficile Toxin Negative Acetaminophen Less than 2.0 L Exam Vital signs: Vital Signs 08/31/18 13:00 08/31/18 16:04 09/01/18 05:57 Temperature 97.5 F L 98.0 F Pulse Rate 78 80 79 Respiratory Rate 16 18 16 Blood Pressure 122/68 129/69 116/60 Pulse Oximetry 97 94 L Intake & Output 08/31/18 09/01/18 09/01/18 18:59 06:59 18:59 Intake Total 360 / 360 Balance 360 / 360 Weight 90.2 kg Intake: Oral 360 / 360 Other: # Voids 2 Weight On Admission 92.533 kg Narrative: Patient not noted to be in acute distress, no gross motor of maladies, no signs of tremor or EPS, no psychomotor agitation or retardation. - Constitutional no acute distress Mental Status Examination Appearance: Appropriate Consciousness: Alert Orientation: x4 Motor Activity: Normal gait Speech: Unremarkable Language: Adequate Fund of Knowledge: Adequate Attention and Concentration: Other (Reports decreased concentration) Memory: Unremarkable Mood: Sad, Anxious Affect: Sad Thought Process & Associations: Intact, Logical, Goal directed Thought Content: Appropriate Hallucination Type: None Delusion Type: None Suicidal Ideation: No Suicidal Plan: No Suicidal Intention: No Homicidal Ideation: No Homicidal Plan: No Homicidal Intention: No Insight: Fair Judgment: Impulsive Assessment and Plan - Assessment (1) Adjustment disorder with mixed anxiety and depressed mood Code(s): F43.23 - Adjustment disorder with mixed anxiety and depressed mood Status: Acute - Plan Plan: Estimated LOS: [] days Patient is a 63-year-old man who carries a diagnosis of depression and anxiety, no previous psychiatric admissions, no previous suicide attempts was presented to the ED voluntarily after being referred by his grief counselor due to patient reporting recent suicide attempt via overdose in the context of feeling overwhelmed with ongoing medical illnesses as well as currently undergoing bereavement from the loss of his which patient was admitted to the inpatient psychiatry unit for further stabilization and for safety. Patient will be admitted under voluntary admission, has capacity to consent for treatment. Both patient to continue Paxil 10 mg daily, Remeron 50 mg at bedtime , clonazepam 1 mg a.m./0.5 mg at bedtime. We will continue to monitor mood and behavior. Social work intervention for psychosocial assessment. Patient to continue recommendations as per hospitalist consult, input appreciated. Discharge planning a progress. Justification for Continued Inpatient Stay: At risk of further decompensation a lower level of care.
--- NOTE | 2018-09-01 12:26 | ECG ---
Date Performed: 09/01/2018 Time Performed: 11:31:59 PTAGE: 63 years EKG: Sinus rhythm MARKED LEFT AXIS DEVIATION LOW QRS VOLTAGE IN PRECORDIAL LEADS POSSIBLE ANTERIOR MYOCARDIAL INFARCTI ON , OF INDETERMINATE AGE ABNORMAL ECG NO PREVIOUS TRACING DOCTOR: Annabelle Wright Interpretating Date/Time 09/01/2018 12:24:21
[2018-09-01] MEDS: clonazePAM 1 MG Tablet PO SCH (12:33)
[2018-09-01] MEDS: Sodium Chloride 0.9% 2 ML Flush BID IV.FLUSH SCH ×2 (12:34→20:23)
[2018-09-01 12:56] LABS: Hemoglobin A1c 5.5 % (4.3-6.0)
--- NOTE | 2018-09-01 14:12 | P.CONID ---
History of Present Illness Service: ID Consult date: 09/01/18 Requesting Physician: Kailyn Starr Reason for Consult: recurrent C.diff Primary Care Provider: Kevin Dallas MD, PhD Family Provider: Kevin Dallas MD, PhD Chief Complaint: depressed mood, suicide attempt History of Present Illness: 63 yo male admitted to psych floor 2/2 depression and suicide attempt Pt was recently treated for Klebsiella infection (c by Dr Reyes and apparemnltly developped C.diff He completed vancomycin about a week ago with resolution of his diarrhea, but few days ago he started to have again multiple watery stools and abdominal pain , cramps Pt also was diagnoosed with Hepatitis A No nausea, vomiting , denies jaundice He was started on vancomycin again and today he noticed improveent: less diarrhea, no abdiominal pain and cramps he is afebrile No leukocytosis CXR was negative Review of Systems All other systems reviewed negative except as stated in HPI PMFSH - History History Provided By: Patient, Medical Record - Medical History Medical History: Medical History (Last Reviewed 09/01/18 @ 18:04 by Aminata Cardenas MD) BPH (benign prostatic hyperplasia) Depression - Surgical History Surgical History: Surgical History (Last Reviewed 09/01/18 @ 18:04 by Aminata Cardenas MD) History of appendectomy S/P partial lobectomy of lung - Family History Family History: Family History (Last Reviewed 09/01/18 @ 18:04 by Aminata Cardenas MD) Other Family history normal - Social History I have reviewed the patient's Social History: Yes - Tobacco History Second Hand Smoke Exposure: No Tobacco Use In Past 30 Days: No Smoking Status: Never smoker - Alcohol History How Often Do You Have a Drink Containing Alcohol: Monthly or less - Substance Use History Substance History: No History of Abuse - Travel History Recent Travel in the [place] Within the Last 8 Weeks: No Recent Travel Out of the Country Within the Last 8 Weeks: No - Immunization History Tetanus Immunization: Unsure Medications and Allergies Active Medications: Active Medications Clonazepam (Klonopin) 0.5 mg PO HS [facility] Clonazepam (Klonopin) 1 mg PO DAILY [facility] Last Admin: 09/01/18 12:33 Dose: 1 mg Mirtazapine (Remeron) 15 mg PO DAILY [facility] Last Admin: 09/01/18 09:45 Dose: 15 mg Paroxetine HCl (Paxil) 20 mg PO HS [facility] Last Admin: 08/31/18 23:28 Dose: 20 mg Sodium Chloride (Ns Flush) 2 ml IV.FLUSH BID [facility] Last Admin: 09/01/18 12:34 Dose: Not Given Sodium Chloride (Ns Flush) 2 ml IV.FLUSH PRN PRN PRN Reason: FLUSH AFTER USING IV ACCESS Tamsulosin HCl (Flomax) 0.4 mg PO DAILY [facility] Last Admin: 09/01/18 09:45 Dose: 0.4 mg Vancomycin HCl (Vancomycin Po) 125 mg PO QID [facility] Last Admin: 09/01/18 12:33 Dose: 125 mg Allergies Allergy/AdvReac Type Severity Reaction Status Date / Time cat dander Allergy Congestion Verified 08/30/18 20:27 Home Medications Medication Instructions Recorded Confirmed Type clonazepam 0.5 mg PO BID 08/30/18 08/30/18 History clonazepam 2 mg PO HS 08/30/18 08/30/18 History mirtazapine 15 mg PO DAILY 08/30/18 08/30/18 History paroxetine HCl 20 mg PO HS 08/30/18 08/30/18 History tamsulosin 0.4 mg PO DAILY 08/30/18 08/30/18 History Exam Vital signs: Vital Signs 08/31/18 16:04 09/01/18 05:57 Temperature 97.5 F L 98.0 F Pulse Rate 80 79 Respiratory Rate 18 16 Blood Pressure 129/69 116/60 Pulse Oximetry 97 94 L Intake & Output 08/31/18 09/01/18 09/01/18 18:59 06:59 18:59 Intake Total 360 / 360 Balance 360 / 360 Weight 90.2 kg Intake: Oral 360 / 360 Other: # Voids 2 Weight On Admission 92.533 kg - Constitutional no acute distress, obese - Routine HEENT Exam Head: Present: normocephalic, atraumatic Eye: Present: EOMI, PERRL ENT: Present: mucous membranes moist, oropharynx clear - Routine Neck Exam Present: supple. Absent: JVD, lymphadenopathy - Routine Chest/Breast/Axilla Exam Axillae: Absent: lymphadenopathy - Routine Respiratory Exam Present: CTA bilaterally. Absent: accessory muscle use, respiratory distress, rhonchi - Routine Cardiovascular Exam Present: RRR, S1, S2. Absent: murmur, gallop, rubs - Routine Abdominal Exam Present: soft, normoactive bowel sounds, distended (mildly). Absent: tenderness , organomegaly, mass - Routine Extremities Exam Absent: cyanosis, clubbing, edema - Routine Skin Exam Present: intact, dry, warm. Absent: cyanosis, lesions, rash - Routine Neurological Exam Present: alert, oriented X3, CN II-XII intact, moving all extremities, vision grossly intact, hearing grossly intact, normal speech - Routine Psychiatric Exam Present: normal thought process, cooperative, depressed Results - Labs CBC & Chem 7: 09/01/18 07:34 09/01/18 07:34 Labs: Laboratory Results - last 24 hr 09/01/18 09/01/18 09/01/18 07:34 07:34 07:34 WBC RBC Hgb Hct MCV MCH MCHC RDW Plt Count MPV Neut % (Auto) Lymph % (Auto) [place] % (Auto) Eos % (Auto) Baso % (Auto) Neut # (Auto) Lymph # (Auto) [place] # (Auto) Eos # (Auto) Baso # (Auto) WBC Differential Differential Comment Sodium 142 Potassium 3.2 L Chloride 106 Carbon Dioxide 29.0 Anion Gap 7 BUN 8 Creatinine 0.91 Estimated GFR 84 L Random Glucose 110 H Hemoglobin A1c 5.5 Calcium 8.5 Total Bilirubin 0.3 AST 69 H ALT 58 Alkaline Phosphatase 66 Total Protein 6.9 D Albumin 3.1 L Triglycerides 167 H Cholesterol 178 LDL Cholesterol, Calc 108 H HDL Cholesterol 36.4 L Cholesterol/HDL Ratio 4.89 Acetaminophen Less than 2.0 L Hepatitis A IgM Ab Reactive H Hep Bs Antigen Nonreactive Hep B Core IgM Ab Nonreactive Hep C IgG Ab Nonreactive 09/01/18 07:34 WBC 6.8 RBC 4.59 Hgb 13.6 Hct 40.4 MCV 88.0 MCH 29.6 MCHC 33.7 RDW 14.1 Plt Count 300 MPV 6.3 L Neut % (Auto) 63.9 Lymph % (Auto) 22.9 [place] % (Auto) 9.8 H Eos % (Auto) 2.8 Baso % (Auto) 0.6 Neut # (Auto) 4.3 Lymph # (Auto) 1.6 [place] # (Auto) 0.7 Eos # (Auto) 0.2 Baso # (Auto) 0.0 WBC Differential . Differential Comment Auto diff final Sodium Potassium Chloride Carbon Dioxide Anion Gap BUN Creatinine Estimated GFR Random Glucose Hemoglobin A1c Calcium Total Bilirubin AST ALT Alkaline Phosphatase Total Protein Albumin Triglycerides Cholesterol LDL Cholesterol, Calc HDL Cholesterol Cholesterol/HDL Ratio Acetaminophen Hepatitis A IgM Ab Hep Bs Antigen Hep B Core IgM Ab Hep C IgG Ab - Imaging Chest X-Ray 08/30/18 20:28 CONCLUSION: No evidence of acute cardiopulmonary disease. Apparent previous left thoracotomy. 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 Hepatitis A - recent infection minimall AST/ALT elevation, no clinical picture of hepatitis cont oral vancomycin x 14 days monitor clioncially If he develops another episode he will need to be treated with 6 weeks of vancomycin tqper fu with Dr Reyes upon dc rechk IgG HAV in 2 weeks dw RN dw pt
[2018-09-01] MEDS: clonazePAM 0.5 MG Tablet PO SCH (20:23)
[2018-09-02 06:57] LABS: Baso % (Auto) 0.7 % (0.0-2.0); Eos # (Auto) 0.2 th/mm3 (0.0-0.4); Hematocrit 37.7 % (39.0-51.0); Hemoglobin 12.7 gm/dL (13.0-17.0); Lymph # (Auto) 1.9 th/mm3 (1.0-4.8); Lymph % (Auto) 34.4 % (9.0-44.0); Mean Corpuscular HGB Conc 33.6 % (32.0-36.0); Mean Corpuscular Volume 89.3 fL (80.0-100.0); Mean Platelet Volume 6.3 fL (7.0-11.0); Mono # (Auto) 0.6 th/mm3 (0.0-0.9); Mono % (Auto) 10.8 % (0.0-8.0); Neut # (Auto) 2.8 th/mm3 (1.8-7.7); Neut % (Auto) 50.1 % (16.0-70.0); Platelet Count 270 th/mm3 (150-450); Red Blood Count 4.23 mil/mm3 (4.50-5.90); White Blood Count 5.7 th/mm3 (4.0-11.0)
[2018-09-02 07:26] LABS: Alanine Aminotransferase 45 U/L (12-78); Albumin 2.8 g/dL (3.4-5.0); Anion Gap 5 meq/L (5-15); Aspartate Aminotransferase 42 U/L (15-37); Blood Urea Nitrogen 6 mg/dL (7-18); Calcium 8.2 mg/dL (8.5-10.1); Carbon Dioxide 32.4 meq/L (21.0-32.0); Chloride 107 meq/L (98-107); Glomerular Filtration Rate 79 mL/min (>89); Glucose,Random 86 mg/dL (74-106); Potassium 3.7 meq/L (3.5-5.1); Sodium 144 meq/L (136-145)
[2018-09-02 07:29] LABS: Alkaline Phosphatase 59 U/L (45-117); Total Protein 6.1 g/dL (6.4-8.2)
[2018-09-02 08:50] LABS: Lymphocytes 25 % (9-44); Metamyelocytes 1 % (0-1); Monocytes 10 % (0-8); Myelocytes 2 % (0-0); Platelet Estimate Normal (Normal); Platelet Morphology Normal (Normal)
[2018-09-02] MEDS: clonazePAM 1 MG Tablet PO SCH (09:43)
--- NOTE | 2018-09-02 09:54 | P.TTN ---
- Patient Problems Problems: 1. Discharge planning 2. Medication compliance 3. Knowledge deficit 4. Lack of coping skills - Progress Toward Goals Provider Present: Dr. Jeana Johnson Provider Input: 09/02/18: Pt experiencing hallucinations, pt on contact isolation (E.Coli). Pt currently meeting psychiatric and medical criteria. Psychiatric Counselors Present: Ricardo Johansen Jr., [facility] Psychiatric Therapist Input: 09/02/18: Pt new to this therapist. Group Spec/RT/OT/REECE Present: CHEVY Suh, Antonio Dorman, OT Group Spec/RT/OT/REECE Input: 09/02/18: Pt has not been attending groups per contact isolation precautions Additional Input: 09/02/18: discharge planning pending relative to both psychiatric and medical issues that have yet to stabilize. - Documentation Teaching Recipient: Patient
[2018-09-02] MEDS: Mirtazapine 15 MG Tablet PO SCH (10:43)
[2018-09-02] MEDS: Sodium Chloride 0.9% 2 ML Flush BID IV.FLUSH SCH ×2 (10:43→20:44)
--- NOTE | 2018-09-02 11:20 | P.PN ---
Subjective Interval history: Follow-up for diarrhea, positive for C. difficile; patient had one stool this morning, indicates that it is more formed. Denies any abdominal pain, no nausea , no vomiting. Yesterday poor appetite, today he wants to eat breakfast. No chest pain, no shortness of breath. No fever. No acute changes overnight. Asking if Remeron can be changed to nighttime so he can sleep. Physical Exam Vital signs: Vital Signs 09/01/18 16:27 09/01/18 19:00 09/02/18 05:16 Temperature 97.6 F 97.6 F 97.7 F Pulse Rate 71 71 71 Respiratory Rate Blood Pressure 126/68 126/68 108/55 L Pulse Oximetry 98 98 96 Intake & Output 09/01/18 09/02/18 09/02/18 18:59 06:59 18:59 Intake Total 480 / 480 960 / 960 Balance 480 / 480 960 / 960 Weight 95.3 kg Intake: Oral 480 / 480 960 / 960 Other: # Voids 3 1 # Bowel Movements 1 Narrative: GENERAL: Well-nourished male, in NAD, lying comfortably in bed SKIN: Warm and dry. HEAD: Normocephalic. EYES: No scleral icterus. No injection or drainage. NECK: Supple, trachea midline. No JVD or lymphadenopathy. CARDIOVASCULAR: Regular rate and rhythm without murmurs, gallops, or rubs. RESPIRATORY: Breath sounds equal bilaterally. No accessory muscle use. GASTROINTESTINAL: Abdomen soft, non-tender, nondistended. Neg rebound. MUSCULOSKELETAL: No cyanosis, or edema. BACK: Nontender without obvious deformity. No CVA tenderness. NEURO/PSYCH: AAOx3, blunt affect, pleasant Results - Labs CBC & Chem 7: 09/02/18 05:57 09/02/18 05:57 Laboratory Results - last 24 hr 09/01/18 09/02/18 09/02/18 07:34 05:57 05:57 WBC 5.7 RBC 4.23 L Hgb 12.7 L Hct 37.7 L MCV 89.3 MCH 30.0 MCHC 33.6 RDW 14.0 Plt Count 270 MPV 6.3 L Prelim Diff (Auto) Slide review pending Neut % (Auto) 50.1 Lymph % (Auto) 34.4 [place] % (Auto) 10.8 H Eos % (Auto) 4.0 Baso % (Auto) 0.7 Neut # (Auto) 2.8 Lymph # (Auto) 1.9 [place] # (Auto) 0.6 Eos # (Auto) 0.2 Baso # (Auto) 0.0 WBC Differential Manual diff final Seg Neuts % (Manual) 52 Band Neuts % (Manual) 7 H Lymphocytes % (Manual) 25 Monocytes % (Manual) 10 H Basophils % (Manual) 3 H Metamyelocytes % (Man) 1 Myelocytes % (Man) 2 H Abs Neuts (Manual) 3.5 Differential Comment . Platelet Estimate Normal Platelet Morphology Normal Sodium 144 Potassium 3.7 Chloride 107 Carbon Dioxide 32.4 H Anion Gap 5 BUN 6 L Creatinine 0.96 Estimated GFR 79 L Random Glucose 86 Hemoglobin A1c 5.5 Calcium 8.2 L Total Bilirubin 0.2 AST 42 H ALT 45 Alkaline Phosphatase 59 Total Protein 6.1 L D Albumin 2.8 L Assessment and Plan - Plan This is a 63-year-old CM who was admitted by the Psych team for IP management of Depression with failed suicide attempt and Drug Overdose (OxyContin). Patient is medically stable however found to have diarrhea and chills x3 days and + C. difficile per testing, HD#3 Adjustment disorder with Mixed Anxiety & Depression/Suicide Attempt Patient denies current suicidal and homicidal ideation -Continue psych management -Continue Paxil, Remeron, and Klonopin -Change Remeron to every 8 C. Difficile Diarrhea Positive antigen and DNA on 08/30 -Continue with vancomycin PO QID -Of note treated for C. difficile as an outpatient on 05/2018 status post Vanc times 2 weeks -Replace electrolytes as needed ID input appreciated, recommends Vanco for 14 days. If another episode, he will need treatment for 6 weeks. Patient is to follow-up with Dr. 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 Quiñonez 1 month ago, records requested -ID recommend- follow-up with Dr. Gastelum as outpatient and recheck IgG HAV in 2 weeks BPH -Continue home Flomax hx of Lobectomy and Klebsiella PNA Neg CXR on admission No PNA sx on admission -Continue to monitor DVT prophylaxis: Ambulatory Code Status: Full code Discussed Condition With: RN, pt Discharge Planning: Per primary care team
--- NOTE | 2018-09-02 16:51 | P.PNPSY ---
Subjective Remarks: Patient seen for follow-up, chart reviewed. Discussion with nursing staff reported that patient slept well last night no behavioral services. Patient was found sitting hospital bed noted B, cooperative. Patient states he slept well, continues to have improvement in bowel movement denying any abdominal pain at this time. Patient reports his mood today is "good" stating that he continues to regret his recent suicide attempt and expresses remorse. Patient reports adequate appetite. Patient reports not having had any anxiety today stating "first time in a long time". Patient denies any suicide ideations states he wants to live. Collateral formation obtained by patient's sister, Lindsay Palmer [phone], was obtained via telephone states that she is pleased the patient is he is seeking help and that he will be connected to an outpatient psychiatrist for follow-up. Patient sister also mentions that she is agreeable to have patient stay with her for support after discharge. Review of Systems All other systems reviewed negative except as stated in HPI Mental Status Examination Appearance: Appropriate Consciousness: Alert Orientation: x4 Motor Activity: Normal gait Speech: Unremarkable Language: Adequate Fund of Knowledge: Adequate Attention and Concentration: Adequate Memory: Unremarkable Mood: Good Affect: Sad (Lessening) Thought Process & Associations: Intact, Logical, Goal directed Thought Content: Appropriate Hallucination Type: None Delusion Type: None Suicidal Ideation: No Suicidal Plan: No Suicidal Intention: No Homicidal Ideation: No Homicidal Plan: No Homicidal Intention: No Insight: Fair Judgment: Impulsive Assessment and Plan - Assessment (1) Adjustment disorder with mixed anxiety and depressed mood Code(s): F43.23 - Adjustment disorder with mixed anxiety and depressed mood Status: Acute - Plan Plan: Patient reporting improvement in mood continues to have continued dysphoric affect denying anxiety today. We will continue to titrate fluoxetine to 40 mg p.o. daily for depression, continue rest of medications. Continue recommendations as per hospitalist recommendations. Hospitalist input appreciated. Continue to monitor mood and behavior. Discharge planning a progress. Justification for Continued Inpatient Stay: At risk of further decompensation at lower level care.
[2018-09-02] MEDS: clonazePAM 0.5 MG Tablet PO SCH (20:43)
[2018-09-03] MEDS: clonazePAM 1 MG Tablet PO SCH (08:58)
[2018-09-03 13:14] LABS: Baso # (Auto) 0.1 th/mm3 (0.0-0.2); Baso % (Auto) 1.1 % (0.0-2.0); Eos # (Auto) 0.2 th/mm3 (0.0-0.4); Eos % (Auto) 2.5 % (0.0-4.0); Hemoglobin 13.3 gm/dL (13.0-17.0); Lymph # (Auto) 1.6 th/mm3 (1.0-4.8); Lymph % (Auto) 24.6 % (9.0-44.0); Mean Corpuscular HGB Conc 33.4 % (32.0-36.0); Mean Corpuscular Hemoglobin 29.6 pg (27.0-34.0); Mean Corpuscular Volume 88.7 fL (80.0-100.0); Mean Platelet Volume 6.1 fL (7.0-11.0); Mono # (Auto) 0.5 th/mm3 (0.0-0.9); Mono % (Auto) 7.5 % (0.0-8.0); Neut # (Auto) 4.3 th/mm3 (1.8-7.7); Neut % (Auto) 64.3 % (16.0-70.0); Platelet Count 343 th/mm3 (150-450); Red Blood Count 4.51 mil/mm3 (4.50-5.90); Red Cell Distribution Width 14.2 % (11.6-17.2); White Blood Count 6.7 th/mm3 (4.0-11.0)
[2018-09-03 13:22] LABS: Calcium 8.7 mg/dL (8.5-10.1); Carbon Dioxide 30.6 meq/L (21.0-32.0)
[2018-09-03 13:50] LABS: Eosinophils 3 % (0-4); Lymphocytes 25 % (9-44); Metamyelocytes 2 % (0-1); Monocytes 6 % (0-8); Platelet Estimate Normal (Normal); Platelet Morphology Normal (Normal)
--- NOTE | 2018-09-03 14:45 | P.PN ---
Subjective Interval history: Follow-up for diarrhea, positive for C. difficile. Patient seen and examined. Patient had one formed bowel movement this morning. Confirmed with nursing staff. Patient states he feels very well. He is wondering when he can be discharged from the hospital. He denies any fever chills. Denies any chest pain or shortness of breath. Denies any nausea, vomiting or abdominal pain. He reports good appetite today. Physical Exam Vital signs: Vital Signs 09/02/18 18:03 09/03/18 05:14 09/03/18 05:16 Temperature 97.6 F 98.0 F 98.0 F Pulse Rate 76 73 73 Respiratory Rate 15 17 17 Blood Pressure 121/58 L 127/61 127/61 Pulse Oximetry 95 94 L 94 L Intake & Output 09/02/18 09/03/18 09/03/18 18:59 06:59 18:59 Intake Total 1080 / 1080 600 / 600 720 / 720 Balance 1080 / 1080 600 / 600 720 / 720 Intake: Oral 1080 / 1080 600 / 600 720 / 720 Other: # Voids 1 Narrative: GENERAL: Well-developed well-nourished male. Awake and alert. In no acute distress. SKIN: Warm and dry. HEENT: Atraumatic. Normocephalic. EOMI. No scleral icterus. No injection or drainage. Airway patent. MMM. NECK: Supple, trachea midline. No JVD or lymphadenopathy. CARDIOVASCULAR: Regular rate and rhythm without murmurs, gallops, or rubs. RESPIRATORY: Breath sounds equal bilaterally. No accessory muscle use. Clear to auscultation GASTROINTESTINAL: Abdomen soft, non-tender, nondistended. +BS. MUSCULOSKELETAL: No cyanosis, or edema. NEUROLOGIC: Awake and alert. Oriented. Able to move all actually spontaneously. No focal neurologic finding. Normal speech. PSYCHIATRIC: Appropriate mood and affect. Calm and cooperative. Results - Labs CBC & Chem 7: 09/03/18 13:00 09/03/18 13:00 Laboratory Results - last 24 hr 09/02/18 09/03/18 09/03/18 18:45 13:00 13:00 WBC 6.7 RBC 4.51 Hgb 13.3 Hct 40.0 MCV 88.7 MCH 29.6 MCHC 33.4 RDW 14.2 Plt Count 343 MPV 6.1 L Prelim Diff (Auto) Slide review pending Neut % (Auto) 64.3 Lymph % (Auto) 24.6 [place] % (Auto) 7.5 Eos % (Auto) 2.5 Baso % (Auto) 1.1 Neut # (Auto) 4.3 Lymph # (Auto) 1.6 [place] # (Auto) 0.5 Eos # (Auto) 0.2 Baso # (Auto) 0.1 WBC Differential Manual diff final Seg Neuts % (Manual) 51 Band Neuts % (Manual) 11 H Lymphocytes % (Manual) 25 Monocytes % (Manual) 6 Eosinophils % (Manual) 3 Basophils % (Manual) 2 Metamyelocytes % (Man) 2 H Abs Neuts (Manual) 4.3 Differential Comment . Platelet Estimate Normal Platelet Morphology Normal Sodium 145 Potassium 4.0 Chloride 105 Carbon Dioxide 30.6 Anion Gap 9 BUN 8 Creatinine 0.93 Estimated GFR 82 L POC Glucose 250 H Random Glucose 104 Calcium 8.7 Assessment and Plan - Plan 63-year-old CM who was admitted by the Psych team for IP management of Depression with failed suicide attempt and Drug Overdose (OxyContin). Patient is medically stable however found to have diarrhea and chills x3 days and + C. difficile per testing, HD#3 Adjustment disorder with Mixed Anxiety & Depression/Suicide Attempt Patient denies current suicidal and homicidal ideation -Continue psych management -Continue Paxil, Remeron, and Klonopin per primary service C. Difficile Diarrhea Positive antigen and DNA on 08/30 -Continue with vancomycin PO QID -Of note treated for C. difficile as an outpatient on 05/2018 status post Vanc times 2 weeks -Replace electrolytes as needed ID input appreciated, recommends Vanco for 14 days. If another episode, he will need treatment for 6 weeks. Patient is to follow-up with Dr. Gastelum as outpatient. Discussed with patient ways to attempt to eradicate spores from home. -add Lactobacillus Hypokalemia, resolved s/p repletion Elevated LFT's, improved Neg acetaminophen level on admission -LFTs trending down, near normal -Avoid hepatotoxic meds -monitor liver function as indicated Hepatitis A Hep A IgM + on admission Likely contributing to patient's diarrhea Patient denies recent travel or new food or water source Patient reports negative hepatitis and HIV testing with PCP, Dr. Quiñonez 1 month ago, records requested -ID recommend- follow-up with Dr. Gastelum as outpatient and recheck IgG HAV in 2 weeks BPH -Continue home Flomax hx of Lobectomy and Klebsiella PNA Neg CXR on admission No PNA sx on admission -Continue to monitor DVT prophylaxis: Ambulatory Patient appears stable from hospitalist standpoint. [facility] will sign off. Please reconsult if needed. Code Status: Full Discussed Condition With: patient, nursing staff
--- NOTE | 2018-09-03 16:21 | P.PNPSY ---
Subjective Remarks: Patient seen for follow-up, chart reviewed. Discussion with nursing staff reported that patient slept well continue to be regretful of her recent suicide attempt. Patient was found lying hospital bed asleep was able to wake up and engage in interview today. Patient states his mood is "okay" reports adequate appetite stating that his bowel movement have been improving denying any abdominal pain at this time. Patient states that he felt somewhat tremulous with the increase of paroxetine and therefore he agreed to decrease in dose. Patient denies any recent anxiety and denying any further suicidal ideations. Review of Systems All other systems reviewed negative except as stated in HPI Mental Status Examination Appearance: Appropriate Consciousness: Alert Orientation: x4 Motor Activity: Normal gait Speech: Unremarkable Language: Adequate Fund of Knowledge: Adequate Attention and Concentration: Adequate Memory: Unremarkable Mood: Good Affect: Appropriate Thought Process & Associations: Intact, Logical, Goal directed Thought Content: Appropriate Hallucination Type: None Delusion Type: None Suicidal Ideation: No Suicidal Plan: No Suicidal Intention: No Homicidal Ideation: No Homicidal Plan: No Homicidal Intention: No Insight: Fair Judgment: Impulsive Assessment and Plan - Assessment (1) Adjustment disorder with mixed anxiety and depressed mood Code(s): F43.23 - Adjustment disorder with mixed anxiety and depressed mood Status: Acute - Plan Plan: Patient this time noted to report less depressed mood denying suicide ideations , mainly concerned of medical clearance from current treatment with C. difficile to be able to continue treatment on an outpatient basis. We will decrease the crusting to 30 mg p.o. daily, continue rest of medications. Continue to monitor mood and behavior. Continue recommendations as per medical team. Discharge planning in progress. Justification for Continued Inpatient Stay: At risk of further decompensation at lower level care.
[2018-09-03] MEDS: Sodium Chloride 0.9% 2 ML Flush BID IV.FLUSH SCH ×2 (17:35→20:27)
[2018-09-03 18:15] VITALS: O2SAT 95
[2018-09-03] MEDS: clonazePAM 0.5 MG Tablet PO SCH (20:26)
[2018-09-03] MEDS ORDERED: Mirtazapine 15 MG Tablet PO SCH (21:00)
[2018-09-04 06:35] VITALS: BP 139/66; PULSE 75; RESP 16; TEMP 97.6
[2018-09-04] MEDS: clonazePAM 1 MG Tablet PO SCH (09:51)
[2018-09-04] MEDS: Sodium Chloride 0.9% 2 ML Flush BID IV.FLUSH SCH (11:26)
--- NOTE | 2018-09-04 12:17 | P.TTN ---
- Patient Problems Problems: 1. Discharge planning 2. Medication compliance 3. Knowledge deficit 4. Lack of coping skills - Progress Toward Goals Provider Present: Dr. Yakov Murray, Dr. Jeana Johnson Provider Input: 09/04: pt has C-Diff; isolation precautions, PCP to be notified for follow-up as pt to be d/c'd to home of pt's sister, expected d/c is today. 09/02/18: Pt experiencing hallucinations, pt on contact isolation (E.Coli). Pt currently meeting psychiatric and medical criteria. Psychiatric Counselors Present: Ricardo Johansen Jr., [facility], Jaz Claudio, [facility] Psychiatric Therapist Input: 09/04: counselor has not met with pt today, counselor defers to MD per poc. 09/02/18: Pt new to this therapist. Group Spec/RT/OT/REECE Present: CHEVY Suh, Antonio Dorman, OT Group Spec/RT/OT/REECE Input: 09/02/18: Pt has not been attending groups per contact isolation precautions Additional Input: 09/04: pt has C-Diff; isolation precautions, PCP to be notified for follow-up as pt to be d/c'd to home of pt's sister, expected d/c is today. 09/02/18: discharge planning pending relative to both psychiatric and medical issues that have yet to stabilize. - Documentation Teaching Recipient: Patient
--- NOTE | 2018-09-15 23:05 | P.DSPSY ---
Psychiatry Discharge Summary Inpatient Psychiatric care?: Yes Advance Directives: No Mental Health Advance Directive: No Health Care Proxy: No - Admission Admission Date: August 31, 2018 13:10 - Admission Diagnosis (1) Adjustment disorder with mixed anxiety and depressed mood Code(s): F43.23 - Adjustment disorder with mixed anxiety and depressed mood Brief History: Patient is a 63-year-old man, , retired, domiciled alone, with a past psychiatric history of depression, anxiety, no previous psychiatric admissions, no previous suicide attempts, no history of self-injurious behavior , with a past medical history significant for BPH, who presented to the ED voluntarily after advised by his grief counselor to come into the hospital due to patient stating that he had a suicide attempt several days ago via overdose patient was admitted to the inpatient psychiatry unit for further evaluation and management. Patient was seen by risk lead in the ED as stated below: 63-year-old white, , retired, male, lives by himself, with reported history of anxiety and depression, presents emergency department on a voluntary basis for psychological evaluation as advised by his grief counselor secondary to failed overdose attempt this past Sunday. The patient allegedly took approximately 20 tablets of oxycodone as a suicide attempt. He did not seek treatment at that time. Patient reports several significant stressors including his partner of 37 years in November of this year, the patient has had several medical issues including pneumonia, left upper lobe lobectomy secondary to lung infection, liver abscess, C. difficile. He feels that his life is consumed with doctor's appointments and that he had lost the will to live. He has been seen a local psychiatrist Dr. Wolfe for the past 3 months and is being treated with Paxil 20 mg, Remeron 15 mg, Klonopin 0.5 twice daily and 2 mg at at bedtime for sleep. . The patient's speech is clear, logical. His affect depressed, mood is depressed. There is no evidence of any hallucinations and I can elicit no delusions or paranoia. He denies current suicidal ideation at this time. He appears to minimize his current emotional distress. 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 Patient was found lying hospital bed currently in isolation due to ongoing C. difficile which patient is followed by hospitalist team, but noted to be calm and cooperative. Patient states that he had been dealing with recent loss of his son has been in November of this year and was attending grief counseling as well as recent medical illnesses to include C. difficile, liver abscess, left upper lobectomy and after recent treatment for C. difficile had a recurrence which prompted patient to feel overwhelmed and attempted to overdose. He mentions that he also been having anxiety which is more prominent in the mornings but denies any difficulty with sleep, appetite concentration but is noted to have decreased energy. He states that several days ago he had been feeling physically ill with suspicion that he had a recurrence of C. difficile and in the morning several days ago had seen a bottle of OxyContin and took a handful of medications which later was woken up by his sister later that day. He states that he had confessed what he had done to his family which they were upset about him for this but states he is glad he did not . Patient reports feeling embarrassed and regretful of suicide attempt at this time denies having had any recurrence of suicidal ideations. Patient continues to have anxiety mostly in the mornings but was wishing to engage in individual therapy as well as continue treatment. Discussion of decreasing clonazepam in the evening and maintaining morning dose was reviewed along with continuance of his antidepressant medication regimen for now. Rest of psychiatric review of systems negative, no perceptual disturbances, no delusional material elicited. Family psychiatric history: Denies Past psychiatric history: Previous psychiatric diagnoses depression and anxiety , no previous psychiatric admissions, no previous suicide attempt or self- injurious behavior. Patient denies history of abuse, current outpatient mental health provider is Dr. Wolfe currently on Paxil 20 mg daily, Remeron 50 mg at bedtime, clonazepam 1 mg twice daily. Substance use history: Alcohol use 2 glasses of wine daily but states having stopped consuming alcohol since February of this year. Patient denies use of any other drugs. Past medical history: BPH Allergies: NKDA Social history: , retired, domiciled alone, supported on Social Security benefits and savings. Tobacco Use In Past 30 Days: No How Often Do You Have a Drink Containing Alcohol: Monthly or less Hospital Course: LATE ENTRY FOR 09/04/18 Patient is a 63-year-old man, , retired, domiciled alone, with a past psychiatric history of depression, anxiety, no previous psychiatric admissions, no previous suicide attempts, no history of self-injurious behavior , with a past medical history significant for BPH, who presented to the ED voluntarily after advised by his grief counselor to come into the hospital due to patient stating that he had a suicide attempt several days ago via overdose patient was admitted to the inpatient psychiatry unit for further evaluation and management. Patient was admitted to a locked, inpatient psychiatric unit. Appropriate precautions were in place throughout patient's hospital stay. Patient was seen and examined on the unit by psychiatry. Psychotropic medications were adjusted. There was no evidence of any suicidality or homicidality on the inpatient unit. Patient's mood improved with the benefit of psychopharmacological treatment and had no behavioral disturbance since admission. Patient was noted to have reached stable mood, noted to participate and engage in treatment and interact with staff adequately. Patient noted to be future oriented with plans to continue treatment and outpatient follow-up appointments for continuity of care. Counselor has arranged discharge plan which patient would be discharged with sister and would stay with her for support. On the day of discharge: Patient seen and examined; chart reviewed. Case discussed with nurse and counselor. No behavioral issues overnight. On my examination today, the patient denies any suicidal homicidal ideation, intent or plan on direct questioning and contracts for safety. Patient denies any perceptional disturbances and no delusional material verbalized today. Patient denies any side effects from medication and has understanding of medication regimen and education. No physical complaints. Suicide and violence risk assessment on day of discharge both suggest lower imminent risk, and the patient's level of function is adequate for plan level of outpatient care. Patient has maximized benefit from this inpatient psychiatric hospital stay and will be discharged with discharge plan as arranged by counselor. Patient advised to return to psychiatric emergency room for any concerning psychiatric symptoms. Patient agrees with plan. - Discharge Discharge Date: 09/04/18 - Discharge Diagnosis (1) Adjustment disorder with mixed anxiety and depressed mood Code(s): F43.23 - Adjustment disorder with mixed anxiety and depressed mood Status: Acute Discharge Disposition: Home - Discharge Instructions Discharge Diet: Heart Healthy Diet Activities You Can Perform: Regular- No Restrictions - Discharge Time > 30 minutes Mental Status Examination Appearance: Appropriate Consciousness: Alert Orientation: x4 Motor Activity: Normal gait Speech: Unremarkable Language: Adequate Fund of Knowledge: Adequate Attention and Concentration: Adequate Memory: Unremarkable Mood: Good Affect: Appropriate Thought Process & Associations: Intact, Logical, Goal directed Thought Content: Appropriate Hallucination Type: None Delusion Type: None Suicidal Ideation: No Suicidal Plan: No Suicidal Intention: No Homicidal Ideation: No Homicidal Plan: No Homicidal Intention: No Insight: Fair Judgment: Impulsive Discharge/Advance Care Plan - Results Vital Signs: Last Vital Signs Temp 97.6 F 09/04/18 06:00 Pulse 75 09/04/18 06:00 Resp 16 09/04/18 06:00 BP 139/66 09/04/18 06:00 Pulse Ox 95 09/04/18 06:00 Lab Results: Laboratory Results Hemoglobin A1c 5.5 % (4.3-6.0) 09/01/18 07:34 Triglycerides 167 mg/dL (42-150) H 09/01/18 07:34 Cholesterol 178 mg/dL (120-200) 09/01/18 07:34 LDL Cholesterol, Calc 108 mg/dL (0-99) H 09/01/18 07:34 HDL Cholesterol 36.4 mg/dL (40.0-60.0) L 09/01/18 07:34 TSH 1.430 uIU/mL (0.358-3.740) 08/30/18 21:04 Summary of Procedures: none Imaging: ITS Impressions Chest X-Ray 08/30/18 20:28 CONCLUSION: No evidence of acute cardiopulmonary disease. Apparent previous left thoracotomy. Pending Results: None - Medications Number of antipsychotic medications at discharge: 0 - Discharge Care Plan Goals to Promote Your Health: * To prevent worsening of your condition and complications * To maintain your health at the optimal level Directions to Meet Your Goals: Take your medications as prescribed Follow your dietary instruction Follow activity as directed Keep your appointments as scheduled Take your immunizations and boosters as scheduled If your symptoms worsen call your PCP, if no PCP go to Urgent Care Center or Emergency Room For 18/06 questions related to your inpatient stay or results of tests pending at discharge, please contact Dr. Rao Johnson MD at Smoking is Dangerous to Your Health. Avoid second hand smoking
== END 2018-09-04 13:10 | disposition home or self-care (01) ==
LOC: NEPJ 14:22 → NEDA 08-31 13:10 → H4EA 08-31 15:45
PROVIDERS: ADMIT Student in an Organized Health Care Education/Training Program; ATTEND Student in an Organized Health Care Education/Training Program